=== PATIENT | female | born 1990 | race Caucasian/White ===

== ENCOUNTER 2016-10-06 14:20 | Emergency (ER) | payer MEDICAID ==
[~2016-10-06] VITALS: Ht 162.6 cm; Wt 110.7 kg
[2016-10-06 14:32] VITALS: BP 113/74; PULSE 115; RESP 16; TEMP 97.6; O2SAT 98
--- NOTE | 2016-10-06 14:39 | NUR ---
Patient to ER bed 2 to gown for evaluation. Side rails up. Report given to BELÉN MUÑOZ.
--- NOTE | 2016-10-06 14:40 | NUR ---
Pt report received from WANDA Lugo. Pt c/o nasal congestion x 1 month with nose bleeding x 2 since last night. No active bleeding noted. Pt denies c/o pain or discomfort.
--- NOTE | 2016-10-06 15:00 | NUR ---
Dr. Arias at bedside to assess pt.
--- NOTE | 2016-10-06 15:28 | NUR ---
MOVED TO H1
[2016-10-06 15:30] VITALS: BP 122/76; PULSE 100; RESP 18; TEMP 97.2; O2SAT 99
--- NOTE | 2016-10-06 15:30 | NUR ---
Patient given written and verbal discharge instructions and verbalizes understanding. ER MD discussed with patient the results and treatment provided. Patient in stable condition. ID arm band removed. Rx of Azithromycin, cortisporin, Fluticason given. Patient educated on pain management and to follow up with PMD. Pain Scale 0/10. Opportunity for questions provided and answered.
== END 2016-10-06 15:30 | disposition home or self-care (01) ==
LOC: SED 14:20
DX: O26.892 Other specified pregnancy related conditions, second trimester (principal); J01.90 Acute sinusitis, unspecified; H60.92 Unspecified otitis externa, left ear; Z3A.16 16 weeks gestation of pregnancy
CPT/HCPCS: 99283

== ENCOUNTER 2016-10-23 04:27 | Emergency (ER) | payer MEDICAID ==
[~2016-10-23] VITALS: Ht 160 cm; Wt 108.9 kg
[2016-10-23 04:27] VITALS: BP 135/64; PULSE 85; RESP 18; TEMP 98.2; O2SAT 98
--- NOTE | 2016-10-23 04:27 | NUR ---
Patient to ER bed 8 to gown for evaluation. Side rails up. Report given to Jude MUÑOZ.
--- NOTE | 2016-10-23 04:34 | NUR ---
Pt presents to ED with c/o L pelvis pain 02/14 radiated to L lower back since yesterday's afternoon, with nausea and vomitting, burning with urination per pt. Pt stated she is 21 weeks , was evaluated at OB prior. A&Ox4, denies SOB or chestpain, denies N/V/D. SKin intact. Will continue to monitor
--- NOTE | 2016-10-23 04:36 | NUR ---
MD Harrell at bedside examining pt
[2016-10-23 04:44] LABS: BILIRUBIN,URINE NEGATIVE (NEGATIVE); BLOOD, URINE NEGATIVE (NEGATIVE); CLARITY/URINE CLEAR (CLEAR); COLOR,URINE YELLOW (YELLOW); GLUCOSE,URINE NEGATIVE (NEGATIVE); KETONES,URINE 3+ (NEGATIVE); LEUKOCYTE ESTERASE ,URINE NEGATIVE (NEGATIVE); NITRITE, URINE POSITIVE (NEGATIVE); PH,URINE 5.5 (5.0-8.0); PROTEIN URINE NEGATIVE (NEGATIVE); UROBILINOGEN,URINE 0.2 (0.2-1.0)
[2016-10-23] MEDS ORDERED: ACETAMINOPHEN 500 MG TABLET PO ONE (04:45)
[2016-10-23] MEDS ORDERED: ONDANSETRON 4 MG ODT TAB PO ONE (04:45)
[2016-10-23 04:49] LABS: BACTERIA,URINE MODERATE /HPF (None Seen); MUCUS,URINE 1+ /LPF (None Seen); RBC,URINE 0-3 /HPF (0-3); WBC,URINE 0-3 /HPF (0-3)
--- NOTE | 2016-10-23 04:59 | NUR ---
Patient given written and verbal discharge instructions and verbalizes understanding. ER MD Harrell discussed with patient the results and treatment provided. Patient in stable condition. ID arm band removed. Rx of macrobid, tylenol, and zofran given. Patient educated on pain management and to follow up with PMD. Pain Scale 0/10 Opportunity for questions provided and answered.
[2016-10-23 05:00] VITALS: BP 132/66; PULSE 84; RESP 18; TEMP 98.2; O2SAT 99
[2016-10-23] MEDS ORDERED: NITROFURANTOIN MONOHYD/M-CRYST 100 MG CAPSULE PO ONE (05:00)
== END 2016-10-23 05:00 | disposition home or self-care (01) ==
LOC: SED 04:27
DX: O23.42 Unspecified infection of urinary tract in pregnancy, second trimester (principal); R03.0 Elevated blood-pressure reading, without diagnosis of hypertension; Z3A.00 Weeks of gestation of pregnancy not specified
CPT/HCPCS: 81000; 99284; Q0162; 59025; G0378

== ENCOUNTER 2022-12-03 17:00 | Emergency (ER) | payer MEDICAID ==
[~2022-12-03] VITALS: Ht 167.6 cm; Wt 56.7 kg
[2022-12-03] MEDS ORDERED: SULF15DR6 RIGHT EYE (17:32)
[2022-12-03 17:47] VITALS: BP_SYST 114
[2022-12-03 18:39] VITALS: BP_SYST 114
== END 2022-12-03 18:39 | disposition home or self-care (01) ==
LOC: SED 17:00
DX: H10.9 Unspecified conjunctivitis (principal); H11.431 Conjunctival hyperemia, right eye; Z79.899 Other long term (current) drug therapy
CPT/HCPCS: 99283

== ENCOUNTER 2023-07-19 08:54 | Emergency (ER) | payer MEDICAID ==
[~2023-07-19] VITALS: Ht 162.6 cm; Wt 97.5 kg
[~2023-07-19 08:54] MED LIST: SULF15DR6 RIGHT EYE
[2023-07-19 08:58] VITALS: BP_SYST 112; PULSE 102; RESP 22; TEMP 97.8; O2SAT 96
[2023-07-19 09:44] LABS: COVID19 ANTIGEN SOFIA FIA NEGATIVE (NEGATIVE)
[2023-07-19] MEDS ORDERED: ALBMDI INH (09:46)
[2023-07-19] MEDS ORDERED: BROM118S61 PO (09:46)
[2023-07-19] MEDS ORDERED: PRED50TA PO (09:46)
[2023-07-19 09:47] LABS: INFLUENZA TYPE A Negative (NEGATIVE); INFLUENZA TYPE B NEGATIVE (NEGATIVE)
[2023-07-19 10:12] VITALS: BP_SYST 112; PULSE 102; RESP 22; TEMP 97.8; O2SAT 96
== END 2023-07-19 09:54 | disposition home or self-care (01) ==
LOC: SED 08:54
DX: J06.9 Acute upper respiratory infection, unspecified (principal); Z20.822 Contact with and (suspected) exposure to COVID-19; Z79.899 Other long term (current) drug therapy
CPT/HCPCS: 36415; 71045; 99284

== ENCOUNTER 2023-09-20 11:14 | Emergency (ER) | payer MEDICAID ==
[~2023-09-20] VITALS: Ht 162.6 cm; Wt 88.5 kg
[~2023-09-20 11:14] MED LIST changes: +ALBMDI INH; +BROM118S61 PO; +PRED50TA PO
[2023-09-20 11:20] VITALS: BP_SYST 135; PULSE 80; RESP 18; TEMP 98.4; O2SAT 96
[2023-09-20] MEDS ORDERED: AMOX500C2 PO (12:06)
[2023-09-20] MEDS: predniSONE 20 MG TABLET PO ONE (12:11)
[2023-09-20] MEDS: IPRATROPIUM/ALBUTEROL SULFATE 3 ML AMPUL.NEB (DUONEB) INH ONE (12:17)
[2023-09-20 12:34] VITALS: BP_SYST 135; PULSE 80; RESP 18; TEMP 98.4; O2SAT 96
[2023-09-20 12:42] LABS: INFLUENZA TYPE A Negative (NEGATIVE); INFLUENZA TYPE B NEGATIVE (NEGATIVE)
== END 2023-09-20 12:32 | disposition home or self-care (01) ==
LOC: SED 11:14
DX: J20.9 Acute bronchitis, unspecified (principal); H66.93 Otitis media, unspecified, bilateral; R07.89 Other chest pain; Z79.899 Other long term (current) drug therapy; Z20.822 Contact with and (suspected) exposure to COVID-19
CPT/HCPCS: 99284; 71045; 87426; 94640; 87804 ×2; J7512; 36415